=== PATIENT | female | born 1975 | race Caucasian/White ===

== ENCOUNTER 2016-05-13 08:48 | Day surgery (SDC) | payer BC ==
[~2016-05-13] VITALS: Ht 167.6 cm; Wt 62.6 kg
[~2016-05-13 08:48] MED LIST: ENDOCET 5-3251 EACH PO
[2016-05-13 11:10] LABS: INTERNAL CONTROL VALID? YES
== END 2016-05-13 10:37 | disposition home or self-care (01) ==
LOC: PAIN 08:48 → SDC 09:15 → PAIN 09:15
PROVIDERS: Anesthesiology Pain Medicine
PROC: 3E0S33Z Introduction of Anti-inflammatory into Epidural Space, Percutaneous Approach (ICD-10-PCS; principal; 2016-05-13)
DX: M54.12 Radiculopathy, cervical region (principal); M50.20 Other cervical disc displacement, unspecified cervical region; F41.9 Anxiety disorder, unspecified; M25.78 Osteophyte, vertebrae; M99.81 Other biomechanical lesions of cervical region; R01.1 Cardiac murmur, unspecified; L30.9 Dermatitis, unspecified
CPT/HCPCS: 84703; J1030; J2250; J3010

== ENCOUNTER 2016-06-22 12:34 | Day surgery (SDC) | payer BC ==
[~2016-06-22] VITALS: Ht 167.6 cm; Wt 62.6 kg
== END 2016-06-22 15:05 | disposition home or self-care (01) ==
LOC: PAIN 12:34 → SDC 13:30 → PAIN 15:05
PROC: 3E0S33Z Introduction of Anti-inflammatory into Epidural Space, Percutaneous Approach (ICD-10-PCS; principal; 2016-06-22)
DX: M50.20 Other cervical disc displacement, unspecified cervical region (principal); F41.9 Anxiety disorder, unspecified; M25.78 Osteophyte, vertebrae; M99.81 Other biomechanical lesions of cervical region; R01.1 Cardiac murmur, unspecified; L30.9 Dermatitis, unspecified; I49.8 Other specified cardiac arrhythmias
CPT/HCPCS: J1030; J2250; J3010